=== PATIENT | female | born 1995 | race Caucasian/White ===

== ENCOUNTER 2018-02-03 22:21 | Emergency (ER) | payer OTHER, BC ==
[2018-02-04] MEDS: DIPHENHYDRAMINE 50 MG INJ IV (01:34)
[2018-02-04] MEDS: METOCLOPRAMIDE 10 MG INJ IV (01:35)
[2018-02-04] MEDS: SOD CHLORIDE 0.9% 1,000 ML IV (01:35)
== END 2018-02-04 03:44 | disposition home or self-care (01) ==
LOC: FTE 22:21
DX: G43.909 Migraine, unspecified, not intractable, without status migrainosus (principal); J32.9 Chronic sinusitis, unspecified; J45.909 Unspecified asthma, uncomplicated
CPT/HCPCS: 70450; 81025; 96374; 96375; 99285-25